=== PATIENT | female | born 1940 | race Caucasian/White ===

== ENCOUNTER 2018-04-18 13:19 | Inpatient (IN) ==
[2018-04-18] MEDS ORDERED: Naloxone 0.4 MG/ML INJ IVP PRN (17:08)
[2018-04-18] MEDS ORDERED: *HR* Heparin 5,000 UNIT/ML VIAL IVP PRN ×2 (17:20)
[2018-04-18] MEDS ORDERED: *HR* Heparin 5,000 UNIT/ML VIAL IVP ONE (17:20)
[2018-04-18] MEDS ORDERED: Heparin 25,000 UNIT/500 ML D5W 25,000 UNIT/500 ML BAG IVC SCH (17:30)
--- NOTE | 2018-04-18 17:31 | Internal Med History&Physical ---
Date of Encounter: 04/18/18 Time of Encounter: 17:25 Internal Medicine - H&P: HPI Chief complaint: Dyspnea on exertion, cough Admitted From: Home Plans for Post Hospital Care: Home History of present illness: Ms. Pop is a 77 year old female with history of CAD status post stent , hypertension, COPD on as needed oxygen, diabetes mellitus, hyperlipidemia was transferred from [facility] for further evaluation of NST UT. Patient has dyspnea on exertion for last few days and seen by PCP who is started antibiotic but not sure the name thinking underlying bronchitis versus pneumonia but patient never got better but worse therefore she ended up to [facility]. Initial lab with positive troponin 0.1, slight raised BNP 211, normal white count, EKG with no acute ST changes, chest x-ray with no acute finding. In ER Lovenox treatment dose 1, Rocephin and Zithromax was given and transferred to [facility]. Patient denies fever, chills, vomiting, headache, dizziness, chest pain, urinary or bowel complaint. Patient has chronic abdominal pain for a few years after cholecystectomy but no acute concern. Patient complained of fatigue and generalized weakness and white is productive a sputum that has been chronic. She supposed to take home oxygen as needed but she barely required as mostly time SPO2 runs higher 90s. Past Med Surg Social Fam HX - Past Medical History Medical history: asthma, COPD, coronary artery disease, hyperlipidemia, hypertension, osteoporosis Psychiatric history: anxiety, depression - Past Surgical History Surgical History: angioplasty/stent, appendectomy, cholecystectomy, hip replacement, hysterectomy, orthopedic, other - Social History Smoking Status: Current every day smoker Smokeless Tobacco Status: No Alcohol use: none Drug use: none - Family History Father Living Status: Hx Family Cardiac Disorders: Yes Mother Living Status: Hx Family Endocrine Disorder: Yes Internal Medicine - H&P: Meds Carvedilol [Coreg] 6.25 mg PO BIDWM 07/27/15 [History] Lisinopril [Zestril] 20 mg PO HS 07/27/15 [History] Ondansetron ODT [Zofran ODT] 4 mg SL Q6HR PRN 07/27/15 [History] Hydrochlorothiazide 12.5 mg PO DAILY 03/22/16 [History] Cyclobenzaprine [Flexeril] 10 mg PO TID PRN #60 tablet 03/27/16 [Rx] OxyCODONE Immed Rel [Roxicodone 15 MG] 15 mg PO Q8HR PRN #90 tablet 03/27/16 [Rx ] Morphine Sulfate SR (12 HR) [MS Contin] 60 mg PO Q8HR PRN 06/13/17 [History] diazePAM [Valium] 5 mg PO BID PRN 06/13/17 [History] 3 Allergy/AdvReac Type Severity Reaction Status Date / Time butorphanol [From Stadol] Allergy Rash Verified 04/18/18 11:21 All Systems PM: as documented above in the HPI. - Constitutional Vitals: Temp Pulse Resp BP Pulse Ox 97.8 F 66 19 130/77 93 04/18/18 15:24 04/18/18 15:24 04/18/18 15:24 04/18/18 15:24 04/18/18 15:24 Exam: General appearance: No acute distress, A&O X 3 Head exam: Atraumatic Eye exam: EOMI, PERRLA ENT exam: Moist oral mucosa Neck nontender, supple Respiratory exam: Decreased breath sound bilaterally Cardiovascular exam: Regular rate and rhythm, no systolic murmur Abdominal exam: Soft, nondistended, positive bowel sounds Extremities exam: No calf tenderness, trace pedal edema present and also skin changes due to chronic venous stasis Skin- warm, dry, intact Neurological exam: Alert, awake, oriented 3, CN II-XII intact, no focal deficits. No facial droop. Normal speech. Normal gait. - Assessment and plan (1) NSTEMI (non-ST elevated myocardial infarction) Current Visit: Yes Status: Acute Assessment and plan: Multiple cardiac risk factor. CAD status post distant. Positive troponin with no acute EKG change. Keep patient in a stepdown ICU, Serial troponin monitoring , aspirin, heparin drip, beta poncho, statin, nitroglycerin, oxygen started patient need ischemic cardiac workup echocardiogram ordered and also consulted lpn or medical assistant. Discussed the plan with on-call lpn or medical assistant. (2) Short of breath on exertion Current Visit: Yes Status: Acute Assessment and plan: Dyspnea on exertion. Differential COPD exacerbation, pneumonia, rule out PE. D -dimer ordered and if positive then will order CT angiogram to rule out PE and consider pulmonary weight-based heparin. Therapeutic 1 dose of Lovenox was given in the [place] ER. Will treat with Rocephin, Zithromax for possible community-acquired pneumonia based on clinical symptoms such as productive cough and shortness of breath. Also possibility of underlying COPD exacerbation therefore Solu-Medrol, DuoNeb, oxygen when necessary added. If any concern will order CT chest. (3) Hypertension Current Visit: Yes Status: Chronic Assessment and plan: Continue home medicine. Home medication is still in verification process. Close monitoring Qualifiers: Hypertension type: essential hypertension Qualified Code(s): I10 - Essential (primary) hypertension (4) DVT prophylaxis Current Visit: Yes Status: Acute Assessment and plan: Heparin drip - Time Spent With Patient Total time spent is greater than 50% in coordination of care (as documented) at patient's floor/unit and/or counseling patient: 25 - 35 minutes
[2018-04-18] MEDS ORDERED: Ipratropium/Albuterol Neb 3 ML IH PRN (17:34)
[2018-04-18 17:44] LABS: Hematocrit 35.8 % (35.3-44.9); Hemoglobin 11.8 g/dL (11.5-15.4); Mean Corpuscular Hemoglobin 28.3 pg (28.0-33.3); Mean Corpuscular Volume 85.9 fL (83.0-100.0); Mean Platelet Volume 9.2 fL (9.4-12.4); Platelet Count 235 K/mcL (140-400); Red Blood Count 4.17 M/mcL (3.82-4.97); Red Cell Distribution Width 15.3 % (11.5-14.5)
[2018-04-18 17:49] LABS: Prothrombin Time 10.8 Seconds (9.4-12.1)
[2018-04-18 17:52] LABS: Activated Partial Thrombo Time 35.4 Seconds (26.0-36.0)
[2018-04-18] MEDS: Nitroglycerin 0.4 MG TAB.SUBL SL PRN ×3 (19:48→20:03)
[2018-04-18] MEDS ORDERED: *HR* Morphine 2 MG/ML SYRINGE IVP ONE (20:06)
[2018-04-18] MEDS: MethylPREDNISolone 40 MG/ML VIAL IVP SCH (23:53)
[2018-04-19] MEDS ORDERED: *HR* FentaNYL (PF) 100 MCG/2 ML VIAL IVP ONE (00:50)
[2018-04-19 03:06] LABS: Chol/HDL Ratio 3.3 (0-4.9)
[2018-04-19] MEDS ORDERED: *HR* LORazepam 2 MG/ML VIAL IVP ONE (03:51)
[2018-04-19] MEDS: cefTRIAXone 1,000 MG in 0.9 % Sodium Chloride Mini Bag 100 ML IVP SCH (08:00)
[2018-04-19] MEDS: Azithromycin 500 MG in D5% in Water 250 ML IVPB SCH (08:01)
[2018-04-19] MEDS: MethylPREDNISolone 40 MG/ML VIAL IVP SCH ×3 (08:02→23:37)
[2018-04-19] MEDS: Aspirin 81 MG TAB.CHEW PO SCH (08:02)
[2018-04-19] MEDS ORDERED: Isovue-370 500 ML INFUS..BTL IV ONE (08:11)
[2018-04-19] MEDS: *HR* OxyCODONE Immed Rel 15 MG TABLET PO PRN (08:24)
[2018-04-19 09:07] LABS: Hematocrit 40.5 % (35.3-44.9); Hemoglobin 13.1 g/dL (11.5-15.4); Immature Granulocytes % 0.5 % (0-4); Lymphocytes # 0.8 K/mcL (0.6-4.6); Lymphocytes % 20.2 %; Mean Corpuscular HGB Conc 32.3 g/dL (31.6-35.5); Mean Corpuscular Hemoglobin 27.8 pg (28.0-33.3); Mean Corpuscular Volume 85.8 fL (83.0-100.0); Mean Platelet Volume 9.7 fL (9.4-12.4); Monocytes # 0.1 K/mcL (0.0-1.3); Monocytes % 2.8 %; Platelet Count 253 K/mcL (140-400); Red Blood Count 4.72 M/mcL (3.82-4.97); Red Cell Distribution Width 15.4 % (11.5-14.5); Segmented Neutrophils % 76.5 %
[2018-04-19] MEDS: Nicotine 21 MG PATCH.TD24 TD SCH (09:27)
[2018-04-19] MEDS: Ondansetron 4 MG/2 ML VIAL IVP PRN ×2 (09:27→15:46)
[2018-04-19 09:28] LABS: BUN/Creatinine Ratio 26 (6-26); Blood Urea Nitrogen 15 mg/dL (8-23); Calcium 8.6 mg/dL (8.6-10.3); Carbon Dioxide 27 mEq/L (23-29); Chloride 100 mEq/L (98-107); Glucose 151 mg/dL (70-105); Osmolality,Calculated 282 (280-300); Potassium 3.9 mEq/L (3.5-5.1); Sodium 134 mEq/L (136-145); eGFR For African Americans > 60 (> 60); eGFR For Non-African Americans > 60 (> 60)
[2018-04-19] MEDS: diazePAM 5 MG TABLET PO PRN (09:28)
--- NOTE | 2018-04-19 09:31 | Cardiology Consult Note ---
Date of Encounter: 04/19/18 Time of Encounter: 08:30 Assessment and Plan (1) Elevated troponin I level Current Visit: Yes Status: Acute Troponin 0.10, 0.07, 0.06 in the setting of COPD exacerbation. Do not suspect ACS at this time. Atypical chest pain symptoms--worsens with cough/deep breaths. No acute ST/T wave abnormalities noted on ECG. Continue medical therapy with asa, statin, and BB. CT chest ordered per primary service. Echo pending. (2) COPD (chronic obstructive pulmonary disease) Current Visit: Yes Status: Chronic Mgmt per primary service. CT angio chest ordered. Qualifiers: COPD type: emphysema Emphysema type: unspecified Qualified Code(s): J43.9 - Emphysema, unspecified (3) CAD (coronary artery disease) Current Visit: No Status: Acute Hx of CAD s/p PCI in 2012 to RCA. Plan as above, continue asa, statin, and BB. Qualifiers: Coronary Disease-Associated Artery/Lesion type: [place] artery [place] vs. transplanted heart: [place] heart Associated angina: without angina Qualified Code(s): I25.10 - Atherosclerotic heart disease of [place] coronary artery without angina pectoris Discussion w patient/family: The assessment and plan as outlined above was discussed with the patient and/or family members who expressed understanding and agreement. All questions were answered. Thank you for involving us in the care of your patient. Please call with any questions. The patient will be discussed and reviewed with Dr. Valerio, changes to be made accordingly. History of Present Illness Consult date: 04/19/18 Requesting physician: Dasia Pak Consult reason: Elevated troponin Chief complaint: Shortness of breath History of present illness: Ms. Pop is a 77 year old female with PMHx significant for COPD (oxygen dependent), HTN, HLD, tobacco use, and CAD s/p PCI (RCA in 2011) who presented to [place] ED with complaints of 1 week history of worsening shortness of breath. Associated symptoms include frequent, nonproductive cough. Also reports chest discomfort that worsens with cough and deep breathing. Troponin was 0.1, patient was then transferred to [facility] for further evaluation. No acute ST/T wave abnormalities noted. Prior CV testing: TTE 02/07/15: Normal LV systolic function, LVEF 60-65%.Mild left ventricular diastolic dysfunction.Normal right ventricular structure and function.Mildly dilated right atrium.Mild aortic regurgitation.Mild mitral regurgitation.Mild- moderate tricuspid regurgitation.Mild-moderate pulmonary hypertension. Estimated RVSP = 48 mmHg.All wall segments showed normal motion. Past Med Surg Social Fam HX - Past Medical History Attestation: Yes The following information was validated with the patient. Source: patient Medical history: asthma, COPD, coronary artery disease, hyperlipidemia, hypertension, osteoporosis Psychiatric history: anxiety, depression - Past Surgical History Surgical History: angioplasty/stent, appendectomy, cholecystectomy, hip replacement, hysterectomy, orthopedic, other - Social History Smoking Status: Current every day smoker Smokeless Tobacco Status: No Alcohol use: none Drug use: none - Family History Father Living Status: Hx Family Cardiac Disorders: Yes Mother Living Status: Hx Family Endocrine Disorder: Yes Medications and Allergies Lisinopril [Zestril] 20 mg PO HS 07/27/15 [History] Morphine Sulfate SR (12 HR) [MS Contin] 60 mg PO Q8HR PRN 06/13/17 [History] diazePAM [Valium] 5 mg PO BID PRN 06/13/17 [History] 3 Allergy/AdvReac Type Severity Reaction Status Date / Time butorphanol [From Stadol] Allergy Rash Verified 04/18/18 11:21 All Systems Review: The remainder of the systems were reviewed and are negative - Cardiovascular Cardiovascular: as per HPI Physical Examination Vital Signs, Last 4 Hours Temp Pulse Resp BP Pulse Ox 04/19/18 08:14 93 04/19/18 07:06 97.5 F L 59 20 157/88 94 General: Conversant, Other (thin, frail, conversational dyspnea) HEENT: Atraumatic, Normocephaly Cardiac: Reg Rate and Rhythm, Normal S1 and S2 Lungs: Other (Coarse, decreased) Neuro: Alert and responsive Abdomen: Soft Extremities: No Edema, Normal Pulses Results 04/19/18 08:55 04/19/18 08:55 Lab Results 04/18/18 04/18/18 04/18/18 17:31 17:31 17:31 WBC 4.3 Hgb 11.8 Hct 35.8 Plt Count 235 INR 1.0 APTT 35.4 D-Dimer 1244 H Troponin I 0.07 H* 04/18/18 04/19/18 04/19/18 23:21 02:19 08:55 WBC Hgb Hct Plt Count INR APTT 63.6 H D 51.3 H D-Dimer Troponin I 0.06 H* 04/19/18 08:55 WBC 4.0 L Hgb 13.1 Hct 40.5 Plt Count 253 INR APTT D-Dimer Troponin I - Imaging and Cardiology Echo: pending, report reviewed Other Results: 12 hour tele: avg HR=68 SR. No events noted. - EKG Interpretation EKG results cardiology: personally reviewed Consult Discharge Plan - Plan Referrals: Teresa Strange, GROUP SOCIAL WORKER [Primary Care Provider] -
--- NOTE | 2018-04-19 14:55 | Internal Med Progress Note ---
Date of Encounter: 04/19/18 Time of Encounter: 08:50 - Assessment and plan (1) NSTEMI (non-ST elevated myocardial infarction) Current Visit: Yes Status: Ruled-out Assessment and plan: Mild troponin leak of 0.1, now trending down. Likely related to demand ischemia and hypoxemia from acute COPD. Cardiology recommendations noted. Continue aspirin, statin, MANSI inhibitor. Echocardiogram shows reduced ejection fraction around 40%, mild LV diastolic dysfunction. Start low-dose IV Lasix, urine output monitoring. Continue telemetry. (2) Hypertension Current Visit: Yes Status: Chronic Qualifiers: Hypertension type: essential hypertension Qualified Code(s): I10 - Essential (primary) hypertension (3) DVT prophylaxis Current Visit: Yes Status: Acute (4) Diabetes mellitus Current Visit: Yes Status: Chronic Assessment and plan: Blood sugars noted to be well controlled. Continue Accu-Chek blood glucose monitoring with sliding scale insulin as needed. Diabetic diet. Qualifiers: Diabetes mellitus type: type 2 Diabetes mellitus salvage determiner insulin use: without chcf use Diabetes mellitus complication status: with unspecified complications Qualified Code(s): E11.8 - Type 2 diabetes mellitus with unspecified complications (5) Chronic pain Current Visit: Yes Status: Chronic Assessment and plan: Patient is noted to be on multiple narcotic pain medications at home both extended and immediate release. Resume home medications. Qualifiers: Chronic pain type: other chronic pain Qualified Code(s): G89.29 - Other chronic pain (6) Acute exacerbation of chronic obstructive airways disease Current Visit: Yes Status: Acute Assessment and plan: Active smoker of at least one pack per day. Continue IV steroids, taper down as tolerated. Follow-up blood cultures, continue empiric IV antibiotics, breathing treatments, supplemental oxygen. D-dimer noted to be elevated. Check CT angiogram of chest, will discontinue IV heparin drip if negative. (7) CAD (coronary artery disease) Current Visit: Yes Status: Chronic Qualifiers: Coronary Disease-Associated Artery/Lesion type: [place] artery [place] vs. transplanted heart: [place] heart Associated angina: without angina Qualified Code(s): I25.10 - Atherosclerotic heart disease of [place] coronary artery without angina pectoris (8) Anxiety and depression Current Visit: Yes Status: Chronic Assessment and plan: Resume home medication - Time Spent With Patient Total time spent is greater than 50% in coordination of care (as documented) at patient's floor/unit and/or counseling patient: - Subjective Interval history: Reports nausea and feeling sick; reports left-sided chest pain, difficulty breathing, hacking cough and wheezing; smokes at least 1 pack of cigarettes per day; lives alone; - Constitutional Vitals: Temp Pulse Resp BP Pulse Ox 97.6 F 64 22 143/86 98 04/19/18 11:28 04/19/18 11:28 04/19/18 11:28 04/19/18 11:28 04/19/18 11:28 General appearance: Present: cachectic, mild distress, A&O X 3, answers questions appropriately - Respiratory Respiratory exam: Present: CTAB (coarse breath sounds B/L), wheezes. Absent: accessory muscle use, rales, rhonchi - Cardiovascular Cardiovascular exam: Present: RRR, +S1, +S2. Absent: diastolic murmur, gallop, rubs, systolic murmur - GI/Abdominal GI/Abdominal exam: Present: normal bowel sounds, soft, no peritoneal signs. Absent: distended, tenderness - Extremities Exam Extremities exam: Present: full ROM, warm, radial pulses palpable and symmetrical. Absent: calf tenderness, cyanotic, pedal edema - Neurological Exam Neurological exam: Present: CN II-XII intact, oriented X3, no focal deficits. Absent: pronater drift, facial droop, speech deficit - Skin Skin exam: Present: dry, intact Internal Medicine: Result - Labs CBC & Chem 7: 04/19/18 08:55 04/19/18 08:55 Labs: Short CBC 04/18/18 04/19/18 Range/Units 17:31 08:55 WBC 4.3 4.0 L (4.3-11.1) K/mcL Hgb 11.8 13.1 (11.5-15.4) g/dL Hct 35.8 40.5 (35.3-44.9) % Plt Count 235 253 (140-400) K/mcL Neutrophils # 3.0 (1.6-8.9) K/mcL BMP 04/19/18 08:55 Sodium 134 L Potassium 3.9 Chloride 100 Carbon Dioxide 27 BUN 15 Creatinine 0.58 L Glucose 151 H Calcium 8.6 Cardiac Enzymes 04/18/18 04/18/18 Range/Units 17:31 23:21 Troponin I 0.07 H* 0.06 H* (< 0.04) ng/mL - ABG Interpretation ABG results: PT/INR, D-dimer PT 10.8 Seconds (9.4-12.1) 04/18/18 17:31 D-Dimer 1244 ng/mLFEU (0-500) H 04/18/18 17:31 - Impressions Impressions Echocardiogram 04/19/18 11:00 Impressions: LVEF 40%. Normal LV chamber size and wall thickness. Global left ventricular systolic dysfunction. Mild left ventricular diastolic dysfunction. Normal right ventricular structure and function. Mild aortic regurgitation. Mild mitral regurgitation. Mild pulmonary hypertension. Mild tricuspid regurgitation. Left Ventricular Wall Motion: Rest Echo Findings The apex, apical inferior, mid inferior, basal inferior, apical anterior, mid anterior, basal anterior, apical septal, mid inferior septal, basal inferior septal, apical lateral, mid anterior lateral, basal anterior lateral, mid anterior septal, mid inferior lateral, basal anterior septal and basal inferior lateral [place] were hypokinetic. Findings: Study Quality * Technically adequate exam. ECG Findings * Normal sinus rhythm. Left Ventricle * LVEF 40%. * Normal LV chamber size and wall thickness. * Global left ventricular systolic dysfunction. * Mild left ventricular diastolic dysfunction. Right Ventricle * Normal right ventricular structure and function. Left Atrium * Mildly dilated left atrium. Right Atrium * Normal right atrial size. Aortic Valve * Trileaflet aortic valve. * Mildly calcified aortic valve leaflets. * Mild aortic regurgitation. * No aortic stenosis. Mitral Valve * Normal mitral valve structure. * No mitral stenosis. * Mild mitral regurgitation. Tricuspid Valve * Normal tricuspid valve structure. * Mild tricuspid regurgitation. * Mild pulmonary hypertension. Pulmonic Valve * Normal pulmonic valve structure and function. * Trace pulmonic regurgitation. Aorta * Normally sized aortic root. Pericardium * Trivial pericardial effusion. IVC * The IVC is dilated. * < 50% respiratory change. Pulmonary Artery * Normal visualized portions of the main pulmonary artery. Consult Discharge Plan - Plan Referrals: Teresa Strange, DEX [Primary Care Provider] -
[2018-04-19] MEDS: *HR* Morphine Sulfate SR (12 HR) 60 MG TABLET.ER PO SCH ×2 (14:59→23:37)
[2018-04-19] MEDS: Furosemide 20 MG/2 ML VIAL IVP SCH (15:46)
[2018-04-19] MEDS ORDERED: Lisinopril 20 MG TABLET PO SCH (21:00)
[2018-04-19] MEDS: Mirtazapine 15 MG TABLET PO SCH (21:11)
[2018-04-19] MEDS: *HR* Heparin 5,000 UNIT/ML VIAL SQ SCH (23:37)
[2018-04-20] MEDS: *HR* OxyCODONE Immed Rel 15 MG TABLET PO PRN (03:08)
[2018-04-20] MEDS: *HR* Heparin 5,000 UNIT/ML VIAL SQ SCH ×3 (05:10→20:12)
[2018-04-20 05:30] LABS: Hematocrit 42.7 % (35.3-44.9); Hemoglobin 14.3 g/dL (11.5-15.4); Immature Granulocytes % 0.4 % (0-4); Lymphocytes # 0.8 K/mcL (0.6-4.6); Lymphocytes % 11.3 %; Mean Corpuscular HGB Conc 33.5 g/dL (31.6-35.5); Mean Corpuscular Volume 86.6 fL (83.0-100.0); Mean Platelet Volume 9.8 fL (9.4-12.4); Monocytes # 0.3 K/mcL (0.0-1.3); Monocytes % 3.8 %; Neutrophils # 5.8 K/mcL (1.6-8.9); Nucleated Red Blood Cells 0.3 /100 WBC (0); Platelet Count 275 K/mcL (140-400); Red Blood Count 4.93 M/mcL (3.82-4.97); Red Cell Distribution Width 15.6 % (11.5-14.5); Segmented Neutrophils % 84.5 %
[2018-04-20 05:55] LABS: BUN/Creatinine Ratio 23 (6-26); Blood Urea Nitrogen 17 mg/dL (8-23); Calcium 8.9 mg/dL (8.6-10.3); Carbon Dioxide 30 mEq/L (23-29); Chloride 95 mEq/L (98-107); Glucose 147 mg/dL (70-105); Osmolality,Calculated 282 (280-300); Potassium 4.3 mEq/L (3.5-5.1); Sodium 134 mEq/L (136-145); eGFR For African Americans > 60 (> 60); eGFR For Non-African Americans > 60 (> 60)
[2018-04-20] MEDS: diazePAM 5 MG TABLET PO PRN (06:56)
[2018-04-20] MEDS: Azithromycin 500 MG in D5% in Water 250 ML IVPB SCH (08:23)
[2018-04-20] MEDS: MethylPREDNISolone 40 MG/ML VIAL IVP SCH ×3 (08:24→20:12)
[2018-04-20] MEDS: cefTRIAXone 1,000 MG in 0.9 % Sodium Chloride Mini Bag 100 ML IVP SCH (08:24)
[2018-04-20] MEDS: Furosemide 20 MG/2 ML VIAL IVP SCH ×2 (08:24→17:26)
[2018-04-20] MEDS: *HR* Morphine Sulfate SR (12 HR) 60 MG TABLET.ER PO SCH ×3 (08:26→23:24)
[2018-04-20] MEDS: Aspirin 81 MG TAB.CHEW PO SCH (08:26)
[2018-04-20] MEDS: BuPROPion XL (24 HR) 150 MG TABLET PO SCH (08:26)
[2018-04-20] MEDS: Nicotine 21 MG PATCH.TD24 TD SCH (08:27)
--- NOTE | 2018-04-20 10:10 | Cardiology Progress Note ---
Date of Encounter: 04/20/18 Time of Encounter: 10:00 Assessment and Plan (1) Elevated troponin I level Current Visit: Yes Status: Acute Troponin 0.10, 0.07, 0.06 in the setting of COPD exacerbation. Do not suspect ACS at this time. Atypical chest pain symptoms--worsens with cough/deep breaths. No acute ST/T wave abnormalities noted on ECG. Continue medical therapy with asa, statin, and BB. CT chest ordered per primary service. EF 40% with global LV systolic dysfunction. Continue medical therapy for now. Recommend ischemic evaluation in the outpatient. (2) COPD (chronic obstructive pulmonary disease) Current Visit: Yes Status: Chronic Mgmt per primary service. CT angio chest ordered. Qualifiers: COPD type: emphysema Emphysema type: unspecified Qualified Code(s): J43.9 - Emphysema, unspecified (3) Cardiomyopathy Current Visit: Yes Status: Acute Mild reduction in LVEF, 40% with global LV systolic dysfunction. Prior reports shows normal LVEF, 60%. Patient presented with acute COPD exacerbation. Still remains short of breath upon exam, however improved. Medical therapy has been recommended. Will change betablocker to Toprol-XL. Continue ACEi. Appears euvolemic upon exam, will transition lasix to po. Can consider ischemic evaluation in the outpatient setting with continued symptoms. Qualifiers: Cardiomyopathy type: unspecified Qualified Code(s): I42.9 - Cardiomyopathy , unspecified (4) CAD (coronary artery disease) Current Visit: Yes Status: Chronic Hx of CAD s/p PCI in 2011 to RCA. Plan as above, continue asa, statin, and BB. Qualifiers: Coronary Disease-Associated Artery/Lesion type: [place] artery [place] vs. transplanted heart: [place] heart Associated angina: without angina Qualified Code(s): I25.10 - Atherosclerotic heart disease of [place] coronary artery without angina pectoris Discussion w patient/family: The assessment and plan as outlined above was discussed with the patient and/or family members who expressed understanding and agreement. All questions were answered. Thank you for involving us in the care of your patient. Please call with any questions. The patient will be discussed and reviewed with Dr. Friend, changes to be made accordingly. Subjective Principal diagnosis: Elevated troponin Interval history: Seen and examined. Shortness of breath significantly improved this morning upon exam. No chest pain reported. No leg edema reported. Objective Vital Signs, Last 4 Hours Temp Pulse Resp BP Pulse Ox 05/21/18 06:52 98.1 F 69 18 151/86 93 General: Conversant, No Apparent Distress, Other (thin, frail) HEENT: Atraumatic, Normocephaly, Mucus Membranes Moist Cardiac: Reg Rate and Rhythm, Normal S1 and S2 Lungs: Other (Significant wheezing noted throughout) Neuro: Alert and responsive Abdomen: Soft Skin: No rashes noted on visualized skin Musculoskeletal: No Chest Wall Tenderness Extremities: No Edema, Normal Pulses Results 04/20/18 05:06 04/20/18 05:06 Lab Results 04/19/18 04/20/18 04/20/18 16:22 05:06 05:06 WBC 6.8 D Hgb 14.3 Hct 42.7 Plt Count 275 APTT 54.6 H Sodium 134 L Potassium 4.3 Chloride 95 L Carbon Dioxide 30 H BUN 17 Creatinine 0.73 Glucose 147 H Calcium 8.9 Active Medications Albuterol/Ipratropium (Duoneb) 3 ml IH [id number] PRN PRN Reason: Shortness Of Breath/Wheezing Stop: 10/18/18 17:35 Aspirin (Aspirin) 81 mg PO DAILY NUNU Stop: 10/19/18 09:01 Last Admin: 04/20/18 08:26 Dose: 81 mg Atorvastatin Calcium (Lipitor) 40 mg PO HS NUNU Stop: 10/18/18 21:01 Last Admin: 04/19/18 21:11 Dose: 40 mg Bupropion HCl (Wellbutrin Xl) 150 mg PO DAILY NUNU Stop: 10/20/18 09:01 Last Admin: 04/20/18 08:26 Dose: 150 mg Cyclobenzaprine HCl (Flexeril) 10 mg PO TID PRN PRN Reason: Spasms Stop: 10/19/18 08:15 Last Admin: 04/19/18 13:17 Dose: 10 mg Diazepam (Valium) 5 mg PO BID PRN PRN Reason: Anxiety Stop: 10/19/18 08:15 Last Admin: 04/20/18 06:56 Dose: 5 mg Furosemide (Lasix) 20 mg IVP BIDDIURETIC NUNU Stop: 10/19/18 17:01 Last Admin: 04/20/18 08:24 Dose: 20 mg Heparin Sodium (Porcine) (Heparin Lock) 500 unit IV ONCE PRN PRN Reason: [place] while in RADIOLOGY Stop: 04/21/18 08:11 Heparin Sodium (Porcine) (Heparin) 5,000 unit SQ Q8HCO [facility] Stop: 10/20/18 00:01 Last Admin: 04/20/18 05:10 Dose: 5,000 unit Azithromycin 500 mg/ Dextrose 250 mls @ 252 mls/hr IVPB Q24H [facility] Stop: 10/19/18 09:01 Last Admin: 04/20/18 08:23 Dose: 252 mls/hr Ceftriaxone Sodium 1,000 mg/ (Sodium Chloride) 100 mls @ 200 mls/hr IVP DAILY [facility] Stop: 10/19/18 09:01 Last Admin: 04/20/18 08:24 Dose: 200 mls/hr Lisinopril (Zestril) 20 mg PO HS [facility] PRN Reason: Protocol Stop: 10/19/18 21:01 Last Admin: 04/19/18 21:11 Dose: 20 mg Methylprednisolone (Solu-Medrol) 40 mg IVP Q12H [facility] Stop: 10/20/18 09:46 Metoprolol Tartrate (Lopressor) 25 mg PO Q8HR [facility] Stop: 10/19/18 00:01 Last Admin: 04/20/18 08:26 Dose: 25 mg Mirtazapine (Remeron) 45 mg PO HS [facility] Stop: 10/19/18 21:01 Last Admin: 04/19/18 21:11 Dose: 45 mg Morphine Sulfate (Ms Contin) 60 mg PO Q8HR [facility] Stop: 10/19/18 16:01 Last Admin: 04/20/18 08:26 Dose: 60 mg Naloxone HCl (Narcan) 0.4 mg IVP Q2MIN PRN PRN Reason: SEE COMMENTS Stop: 10/18/18 17:09 Nicotine (Nicoderm) 21 mg TD DAILY [facility] PRN Reason: Protocol Stop: 10/19/18 09:16 Last Admin: 04/20/18 08:27 Dose: 21 mg Nitroglycerin (Nitroglycerin) 0.4 mg SL Q5MIN PRN PRN Reason: Chest Pain Stop: 10/18/18 17:38 Last Admin: 04/18/18 20:03 Dose: 0.4 mg Ondansetron HCl (Zofran) 4 mg IVP Q6HR PRN; Protocol PRN Reason: Nausea And Vomiting Stop: 10/19/18 09:14 Last Admin: 04/19/18 15:46 Dose: 4 mg Oxycodone HCl (Roxicodone) 15 mg PO Q8HR PRN; Protocol PRN Reason: pain Stop: 10/19/18 08:15 Last Admin: 04/20/18 03:08 Dose: 15 mg - Imaging and Cardiology Echo: report reviewed Cardiac cath: report reviewed Other Results: 12 hour tele: avg HR=61 SR. - EKG Interpretation EKG results cardiology: personally reviewed Consult Discharge Plan - Plan Referrals: Teresa Strange, DEX [Primary Care Provider] - 04/29/18 4:00 pm Triston Maxwell DO [Partnered Physician] - (office will call patient at home with follow up)
[2018-04-20 13:36] LABS: Adenovirus Not Detected (Not Detect); Bordetella Pertussis Not Detected (Not Detect); Chlamydophila pneumoniae Not Detected (Not Detect); Coronavirus 229E Not Detected (Not Detect); Coronavirus HKU1 Not Detected (Not Detect); Coronavirus NL63 Not Detected (Not Detect); Coronavirus OC43 Not Detected (Not Detect); Human Metapneumovirus Not Detected (Not Detect); Human Rhinovirus/Enterovirus Not Detected (Not Detect); Influenza A Subtype 2009 H1 Not Detected (Not Detect); Influenza A Untypeable Not Detected (Not Detect); Influenza B Not Detected (Not Detect); Mycoplasma pneumoniae Not Detected (Not Detect); Parainfluenza Virus 1 Not Detected (Not Detect); Parainfluenza Virus 2 Not Detected (Not Detect); Parainfluenza Virus 3 Not Detected (Not Detect); Parainfluenza Virus 4 Not Detected (Not Detect); Respiratory Syncytial Virus Not Detected (Not Detect)
--- NOTE | 2018-04-20 14:32 | Electrocardiograph Report ---
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
--- NOTE | 2018-04-20 16:49 | Internal Med Progress Note ---
Date of Encounter: 04/20/18 Time of Encounter: 09:45 - Assessment and plan (1) NSTEMI (non-ST elevated myocardial infarction) Current Visit: Yes Status: Ruled-out Assessment and plan: Mild troponin leak of 0.1, now trending down. Likely related to demand ischemia and hypoxemia from acute COPD. Cardiology recommendations noted, recommend outpatient ischemic evaluation due to reduced EF. Continue aspirin, statin, MANSI inhibitor. Echocardiogram shows reduced ejection fraction around 40 %, mild LV diastolic dysfunction. Change Lasix to PO, urine output monitoring. Continue telemetry. PT/OT evaluation; (2) Hypertension Current Visit: Yes Status: Chronic Assessment and plan: Started Lasix; ACEI and beta poncho are being resumed; monitor BP closely; Qualifiers: Hypertension type: essential hypertension Qualified Code(s): I10 - Essential (primary) hypertension (3) DVT prophylaxis Current Visit: Yes Status: Acute Assessment and plan: Heparin s.c (4) Diabetes mellitus Current Visit: Yes Status: Chronic Assessment and plan: Blood sugars noted to be well controlled. Continue Accu-Chek blood glucose monitoring with sliding scale insulin as needed. Diabetic diet. Qualifiers: Diabetes mellitus type: type 2 Diabetes mellitus ferry terminal agent insulin use: without jail use Diabetes mellitus complication status: with unspecified complications Qualified Code(s): E11.8 - Type 2 diabetes mellitus with unspecified complications (5) Chronic pain Current Visit: Yes Status: Chronic Assessment and plan: Patient is noted to be on multiple narcotic pain medications at home both extended and immediate release. Resume home medications. CTA chest shows multiple compression deformities in thoracic and upper lumbar vertebral bodies, new compression fractures in T3 and T8; outpatient Spine surgery f/up; Qualifiers: Chronic pain type: other chronic pain Qualified Code(s): G89.29 - Other chronic pain (6) Acute exacerbation of chronic obstructive airways disease Current Visit: Yes Status: Acute Assessment and plan: Active smoker of at least one pack per day. Continue IV steroids, taper down as tolerated. Follow-up blood cultures, continue empiric IV antibiotics, breathing treatments, supplemental oxygen. D-dimer noted to be elevated. CT angiogram of chest shows no e/o acute PE, off IV heparin drip. Home O2 evaluation and 6-min walk test prior to discharge; (7) CAD (coronary artery disease) Current Visit: Yes Status: Chronic Qualifiers: Coronary Disease-Associated Artery/Lesion type: [place] artery [place] vs. transplanted heart: [place] heart Associated angina: without angina Qualified Code(s): I25.10 - Atherosclerotic heart disease of [place] coronary artery without angina pectoris (8) Anxiety and depression Current Visit: Yes Status: Chronic Assessment and plan: Resume home medications; - Time Spent With Patient Total time spent is greater than 50% in coordination of care (as documented) at patient's floor/unit and/or counseling patient: - Subjective Interval history: Appears significantly better from yesterday; denies chest pain, palpitations; improved shortness of breath and respiratory distress; reports extreme anxiety "nerves" and chronic pains. Nicotine patch is working, claims she has easy access to cigarettes at home and unable to quit; - Constitutional Vitals: Temp Pulse Resp BP Pulse Ox 97.3 F L 56 18 136/98 93 04/20/18 16:11 04/20/18 16:11 04/20/18 16:11 04/20/18 16:11 04/20/18 16:11 General appearance: Present: cachectic, A&O X 3, answers questions appropriately - Respiratory Respiratory exam: Present: CTAB (coarse breath sounds B/L), wheezes (B/L posterior expiratory wheezing). Absent: accessory muscle use, rales, rhonchi - Cardiovascular Cardiovascular exam: Present: RRR, +S1, +S2. Absent: diastolic murmur, gallop, rubs, systolic murmur - GI/Abdominal GI/Abdominal exam: Present: normal bowel sounds, soft, no peritoneal signs. Absent: distended, tenderness - Extremities Exam Extremities exam: Present: full ROM, warm, radial pulses palpable and symmetrical. Absent: calf tenderness, cyanotic, pedal edema - Neurological Exam Neurological exam: Present: CN II-XII intact, oriented X3, no focal deficits. Absent: pronater drift, facial droop, speech deficit Internal Medicine: Result - Labs CBC & Chem 7: 04/20/18 05:06 04/20/18 05:06 Labs: Short CBC 04/20/18 Range/Units 05:06 WBC 6.8 D (4.3-11.1) K/mcL Hgb 14.3 (11.5-15.4) g/dL Hct 42.7 (35.3-44.9) % Plt Count 275 (140-400) K/mcL Neutrophils # 5.8 (1.6-8.9) K/mcL BMP 04/20/18 05:06 Sodium 134 L Potassium 4.3 Chloride 95 L Carbon Dioxide 30 H BUN 17 Creatinine 0.73 Glucose 147 H Calcium 8.9 - ABG Interpretation ABG results: PT/INR, D-dimer PT 10.8 Seconds (9.4-12.1) 04/18/18 17:31 D-Dimer 1244 ng/mLFEU (0-500) H 04/18/18 17:31 - Impressions Impressions Chest CTA 04/19/18 11:00 IMPRESSION: No CT evidence of pulmonary embolism. Small bilateral pleural effusions with lower lobe consolidation, greater on the left, atelectasis and/or pneumonia. Multiple compression deformities of thoracic and upper lumbar vertebral bodies. Since prior study October 2016, T3 compression fracture is new and a T8 compression fracture is increased. Correlation is recommended. MRI may be helpful if indicated. D/ / Dorothy Winn Cha, MD / Dorothy Winn Cha, MD Interpreting Provider: Dorothy Winn Cha, MD Consult Discharge Plan - Plan Referrals: Teresa Strange CNP [Primary Care Provider] - 04/29/18 4:00 pm Triston Maxwell DO [Partnered Physician] - (office will call patient at home with follow up)
[2018-04-20] MEDS: Mirtazapine 15 MG TABLET PO SCH (20:11)
[2018-04-20] MEDS: Lisinopril 20 MG TABLET PO SCH (20:12)
[2018-04-21] MEDS: diazePAM 5 MG TABLET PO PRN (00:28)
[2018-04-21] MEDS ORDERED: Haloperidol Lactate 5 MG/ML VIAL IVP ONE (03:43)
[2018-04-21] MEDS: *HR* Heparin 5,000 UNIT/ML VIAL SQ SCH ×3 (05:54→20:36)
[2018-04-21] MEDS: Metoprolol XL (24 HR) Succ 25 MG TAB.ER.24H PO SCH (07:50)
[2018-04-21] MEDS: Furosemide 20 MG TABLET PO SCH ×2 (07:50→17:10)
[2018-04-21] MEDS: *HR* Morphine Sulfate SR (12 HR) 60 MG TABLET.ER PO SCH ×2 (07:50→17:10)
[2018-04-21] MEDS: BuPROPion XL (24 HR) 150 MG TABLET PO SCH (07:50)
[2018-04-21] MEDS: Azithromycin 500 MG in D5% in Water 250 ML IVPB SCH (07:50)
[2018-04-21] MEDS: Aspirin 81 MG TAB.CHEW PO SCH (07:50)
[2018-04-21] MEDS: cefTRIAXone 1,000 MG in 0.9 % Sodium Chloride Mini Bag 100 ML IVP SCH (07:50)
[2018-04-21] MEDS: Nicotine 21 MG PATCH.TD24 TD SCH (07:51)
[2018-04-21] MEDS: MethylPREDNISolone 40 MG/ML VIAL IVP SCH (10:39)
[2018-04-21 20:35] LABS: ABG Base Excess 4 mEq/L (-2 to 3); ABG HCO3 30 mEq/L (21-27); ABG Oxygen Saturation 86 % (95-98); ABG PCO2 49 mmHg (35-45); ABG PH 7.39 pH Units (7.32-7.45); ABG PO2 53 mmHg (85-104); ABG TCO2 31 mEq/L (20-26)
[2018-04-21] MEDS: Mirtazapine 15 MG TABLET PO SCH (20:36)
[2018-04-21] MEDS: Lisinopril 20 MG TABLET PO SCH (20:37)
--- NOTE | 2018-04-21 21:34 | Internal Med Progress Note ---
Date of Encounter: 04/21/18 Time of Encounter: 18:00 - Assessment and plan (1) Acute exacerbation of chronic obstructive airways disease Current Visit: Yes Status: Acute Assessment and plan: The patient has had dyspnea, coughing and wheezing recently. It has been associated with some anterior chest discomfort. She does not use oxygen at home. After starting her on IV Solu-Medrol, she has developed confusion. We will try to avoid oral steroids. We will use nebulizer treatments. She will use if needed oxygen. The patient is started on IV Rocephin and IV Zithromax. (2) Acute on chronic respiratory failure with hypoxia and hypercapnia Current Visit: Yes Status: Acute Assessment and plan: The patient required oxygen at that admission. Her ABG from today's shows mild hypercapnia and mild hypoxia. We will treat her exacerbation of COPD, as mentioned above. (3) Encephalopathy acute Current Visit: Yes Status: Acute Assessment and plan: Cardiac intensive follow-up of pain is likely due to high-dose steroids. We stopped IV Solu-Medrol. We will use inhaled bronchodilators with or without inhaled steroids. I stopped her when necessary oxycodone. I decreased her dose of MS Contin. (4) Chronic systolic heart failure Current Visit: Yes Status: Chronic Assessment and plan: She seems to have chronic mild systolic heart failure. See notes from cardiology. Her last ejection fraction was 40%. (5) Demand ischemia Current Visit: Yes Status: Acute Assessment and plan: See notes from cardiology. Her demand ischemia is likely due to COPD exacerbation. See my notes about treatment of that problem. She may need more testing for her heart, in outpatient settings. - Time Spent With Patient Total time spent is greater than 50% in coordination of care (as documented) at patient's floor/unit and/or counseling patient: - Subjective Interval history: The patient is very confused. It started shortly after giving her IV Solu- Medrol. She tells me that she feels fine. Denies chest pain. Denies difficulty breathing. She is using her oxygen mask. - Constitutional Vitals: Temp Pulse Resp BP Pulse Ox 97 F L 75 16 143/84 86 04/21/18 20:08 04/21/18 20:08 04/21/18 20:08 04/21/18 20:08 04/21/18 20:08 General appearance: Present: cachectic, A&O X 3, no acute distress - Respiratory Respiratory exam: Present: CTAB. Absent: rales, rhonchi, wheezes - Cardiovascular Cardiovascular exam: Present: RRR. Absent: diastolic murmur, gallop, systolic murmur - GI/Abdominal GI/Abdominal exam: Present: normal bowel sounds, soft, no peritoneal signs. Absent: distended, tenderness - Skin Skin exam: Present: dry, intact Internal Medicine: Result - Labs CBC & Chem 7: 04/20/18 05:06 04/20/18 05:06 - ABG Interpretation ABG results: ABG ABG pH 7.39 pH Units (7.32-7.45) 04/21/18 20:32 ABG pCO2 49 mmHg (35-45) H 04/21/18 20:32 ABG pO2 53 mmHg (85-104) L 04/21/18 20:32 ABG O2 Saturation 86 % (95-98) L 04/21/18 20:32 PT/INR, D-dimer PT 10.8 Seconds (9.4-12.1) 04/18/18 17:31 D-Dimer 1244 ng/mLFEU (0-500) H 04/18/18 17:31 - VTE Deep Vein Thrombosis/Pulmonary Embolism Present on Admission: No Consult Discharge Plan - Plan Referrals: Teresa Strange CNP [Primary Care Provider] - 04/29/18 4:00 pm Triston Maxwell DO [Partnered Physician] - (office will call patient at home with follow up)
[2018-04-22] MEDS ORDERED: *HR* Labetalol 20 MG/4 ML SYRINGE IVP ONE (02:11)
[2018-04-22] MEDS: Ipratropium/Albuterol Neb 3 ML IH SCH ×6 (03:50→23:42)
[2018-04-22] MEDS: *HR* Heparin 5,000 UNIT/ML VIAL SQ SCH ×3 (05:51→20:28)
[2018-04-22] MEDS: *HR* Morphine Sulfate SR (12 HR) 60 MG TABLET.ER PO SCH ×2 (05:52→18:06)
[2018-04-22] MEDS: Nicotine 21 MG PATCH.TD24 TD SCH (07:58)
[2018-04-22] MEDS: Metoprolol XL (24 HR) Succ 25 MG TAB.ER.24H PO SCH (07:58)
[2018-04-22] MEDS: Furosemide 20 MG TABLET PO SCH ×2 (07:58→18:06)
[2018-04-22] MEDS: Azithromycin 250 MG TABLET PO SCH (07:58)
[2018-04-22] MEDS: cefTRIAXone 1,000 MG in 0.9 % Sodium Chloride Mini Bag 100 ML IVP SCH (07:58)
[2018-04-22] MEDS: Aspirin 81 MG TAB.CHEW PO SCH (07:58)
[2018-04-22] MEDS: BuPROPion XL (24 HR) 150 MG TABLET PO SCH (07:58)
[2018-04-22] MEDS ORDERED: *HR* OxyCODONE Immed Rel 5 MG TABLET PO PRN (15:27)
[2018-04-22] MEDS: Lisinopril 20 MG TABLET PO SCH (20:27)
[2018-04-22] MEDS: Mirtazapine 15 MG TABLET PO SCH (20:28)
--- NOTE | 2018-04-22 23:55 | Internal Med Progress Note ---
Date of Encounter: 04/22/18 Time of Encounter: 17:00 - Assessment and plan (1) Acute exacerbation of chronic obstructive airways disease Status: Acute Assessment and plan: Better. Her breathing he is not labored anymore. She has less wheezing. Will continue supplemental oxygen and ipratropium/albuterol nebulizer treatments. She started on Zithromax. (2) Encephalopathy acute Status: Acute Assessment and plan: Subsided. We decreased her dose of morphine sulfate. We stopped her IV Solu- Medrol. (3) Chronic systolic heart failure Status: Chronic Assessment and plan: Mild. Will keep her on the lisinopril and extended-release metoprolol. (4) Demand ischemia Status: Acute Assessment and plan: This is secondary to I observed that admission hypoxia. See notes from cardiology. (5) Acute and chronic respiratory failure with hypoxia Status: Acute Assessment and plan: Her acute respiratory failure subsided. She continues to have chronic respiratory failure with hypoxia. She said her baseline 3 L per minute nasal cannula oxygen. - Time Spent With Patient Total time spent is greater than 50% in coordination of care (as documented) at patient's floor/unit and/or counseling patient: - Subjective Interval history: Her confusion subsided. Her breathing is not labored anymore. She does have a little bit of wheezing at times. Denies chest pain. Denies heptaminol pain, nausea and vomiting. She has normal urination. - Constitutional Vitals: Temp Pulse Resp BP Pulse Ox 97.8 F 72 16 139/87 96 04/22/18 22:55 04/22/18 22:55 04/22/18 22:55 04/22/18 22:55 04/22/18 20:37 General appearance: Present: cachectic, A&O X 3, no acute distress - Respiratory Respiratory exam: Present: CTAB, wheezes. Absent: accessory muscle use, rales, rhonchi Additional comments: She has a few bilateral wheezes. - Cardiovascular Cardiovascular exam: Present: RRR, +S1, +S2. Absent: diastolic murmur, gallop, rubs, systolic murmur - GI/Abdominal GI/Abdominal exam: Present: normal bowel sounds, soft, no peritoneal signs. Absent: distended, tenderness - Skin Skin exam: Present: dry, intact Internal Medicine: Result - Labs CBC & Chem 7: 04/20/18 05:06 05/21/18 05:06 - ABG Interpretation ABG results: ABG ABG pH 7.39 pH Units (7.32-7.45) 04/21/18 20:32 ABG pCO2 49 mmHg (35-45) H 04/21/18 20:32 ABG pO2 53 mmHg (85-104) L 04/21/18 20:32 ABG O2 Saturation 86 % (95-98) L 04/21/18 20:32 PT/INR, D-dimer PT 10.8 Seconds (9.4-12.1) 04/18/18 17:31 D-Dimer 1244 ng/mLFEU (0-500) H 04/18/18 17:31 - VTE Deep Vein Thrombosis/Pulmonary Embolism Present on Admission: No Consult Discharge Plan - Plan Additional Instructions: The patient is to use oxygen at 2 L/m nasal cannula continuously. We will keep her pulse ox between 90 AND 95%. Some assistance is needed with ambulation. Referrals: Teresa Strange CNP [Primary Care Provider] - (Patient is going to [facility] no PCP appointment needed) Triston Maxwell DO [Partnered Physician] - (office will call patient at home with follow up) Prescriptions: OxyCODONE Immed Rel [Roxicodone 5 MG] 5 mg PO Q6HR PRN 5 Days #10 tablet PRN Reason: Breakthrough Pain Morphine Sulfate SR (12 HR) [MS Contin] 60 mg PO Q12HR 5 Days #10 tablet.er diazePAM [Valium] 5 mg PO BID PRN 5 Days #10 tablet PRN Reason: Anxiety
[2018-04-23] MEDS: Ipratropium/Albuterol Neb 3 ML IH SCH ×3 (03:56→11:12)
[2018-04-23] MEDS: *HR* Morphine Sulfate SR (12 HR) 60 MG TABLET.ER PO SCH (06:23)
[2018-04-23] MEDS: *HR* Heparin 5,000 UNIT/ML VIAL SQ SCH (06:23)
[2018-04-23] MEDS: Aspirin 81 MG TAB.CHEW PO SCH (08:37)
[2018-04-23] MEDS: Nicotine 21 MG PATCH.TD24 TD SCH (08:38)
[2018-04-23] MEDS: cefTRIAXone 1,000 MG in 0.9 % Sodium Chloride Mini Bag 100 ML IVP SCH (08:38)
[2018-04-23] MEDS: BuPROPion XL (24 HR) 150 MG TABLET PO SCH (08:38)
[2018-04-23] MEDS: Azithromycin 250 MG TABLET PO SCH (08:38)
[2018-04-23] MEDS: Furosemide 20 MG TABLET PO SCH (08:38)
[2018-04-23] MEDS: Metoprolol XL (24 HR) Succ 25 MG TAB.ER.24H PO SCH (08:40)
--- NOTE | 2018-04-23 11:01 | Discharge Summary ---
- NOTES TO OUTPATIENT PROVIDER Notes to Outpatient Provider: The patient was admitted with exacerbation of COPD. She got confused after giving her IV Solu-Medrol. It subsided. Her breathing seems to be baseline. She uses supplemental oxygen at 2 L/m nasal cannula oxygen. Date of Encounter: 04/23/18 Time of Encounter: 10:30 - Discharge Diagnosis (1) Acute exacerbation of chronic obstructive airways disease Priority: Primary Status: Acute (2) Encephalopathy acute Priority: Secondary Status: Acute Comments: Secondary to use of IV steroids. Subsided. (3) Chronic systolic heart failure Priority: Secondary Status: Chronic Comments: Heart ejection fraction is 40%. (4) Demand ischemia Priority: Primary Status: Acute Comments: She was evaluated by cardiology. She may need outpatient workup, when symptomatic. (5) Acute and chronic respiratory failure with hypoxia Priority: Primary Status: Acute (6) Chronic pain syndrome Priority: Secondary Status: Acute Assessment and Plan: She doesn't complain of pain. I decreased dose of extended-release morphine sulfate by one third. We may need to discontinue this gradually. Hospital course: Ms. Pop is a 77 year old female. The patient was admitted with exacerbation of COPD. She got confused after giving her IV Solu-Medrol. I decreased her dose of extended-release morphine sulfate. Confusion subsided. Her breathing seems to be baseline. She uses supplemental oxygen at 3 L/m nasal cannula oxygen.We found her to have mildly elevated troponin. Cardiology was consulted. They feel, that she experienced demand ischemia secondary to severe hypoxia.She has mild/moderate systolic heart failure. Will keep her on lisinopril and extended-release metoprolol. We are sending her to a fpc facility. Discharge discussed with: patient, family, nurse, case management - Time Spent with Patient Total time spent providing and/or coordinating discharge services: Greater than 30 minutes - Discharge Medications Prescriptions: OxyCODONE Immed Rel [Roxicodone 5 MG] 5 mg PO Q6HR PRN 5 Days #10 tablet PRN Reason: Breakthrough Pain Morphine Sulfate SR (12 HR) [MS Contin] 60 mg PO Q12HR 5 Days #10 tablet.er diazePAM [Valium] 5 mg PO BID PRN 5 Days #10 tablet PRN Reason: Anxiety Home Medications: Lisinopril [Zestril] 20 mg PO HS 07/27/15 [History] Morphine Sulfate SR (12 HR) [MS Contin] 60 mg PO Q8HR PRN 06/13/17 [History] Albuterol Sulfate [Ventolin Hfa] 2 puff IH Q6H PRN 04/19/18 [History] BuPROPion XL (24 HR) [Wellbutrin Xl] 150 mg PO DAILY 04/19/18 [History] Fluticasone/Vilanterol [Breo Ellipta 100-25 Mcg INH] 1 puff IH DAILY 04/19/18 [ History] Hydrochlorothiazide [Microzide] 12.5 mg PO DAILY 04/19/18 [History] Mirtazapine [Remeron] 45 mg PO HS 04/19/18 [History] Aspirin 81 mg PO DAILY #0 tab.chew 04/23/18 [Rx] Atorvastatin [Lipitor] 40 mg PO HS tablet 04/23/18 [Rx] Azithromycin [Zithromax] 500 mg PO DAILY 5 Days tablet 04/23/18 [Rx] Ipratropium/Albuterol Neb [Duoneb] 3 ml IH Q4HR PRN inhsol 04/23/18 [Rx] Ipratropium/Albuterol Neb [Duoneb] 3 ml IH QID inhsol 04/23/18 [Rx] Metoprolol XL (24 HR) Succ [Toprol Xl] 25 mg PO DAILY tab.er.24h 04/23/18 [Rx] Morphine Sulfate SR (12 HR) [MS Contin] 60 mg PO Q12HR 5 Days #10 tablet.er [Rx] Nicotine Patch [Nicoderm] 21 mg TD DAILY patch.td24 04/23/18 [Rx] Nitroglycerin 0.4 mg SL Q5MIN PRN tab.subl 04/23/18 [Rx] OxyCODONE Immed Rel [Roxicodone 5 MG] 5 mg PO Q6HR PRN 5 Days #10 tablet [Rx] diazePAM [Valium] 5 mg PO BID PRN 5 Days #10 tablet 04/23/18 [Rx] Allergies/Adverse Reactions: 3 Allergy/AdvReac Type Severity Reaction Status Date / Time butorphanol [From Stadol] Allergy Rash Verified 04/18/18 11:21 Date of admission: 04/19/18 18:33 Primary care physician: Teresa Strange CNP Consults: 04/18/18 17:08 Consult to Cardiology [CONS] Routine Comment: Consulting Provider: Jennie Nevarez Reason for Consult: NST MT Call Completed: Yes 04/19/18 09:22 Consult to Occupational Therapy [CONS] Routine Comment: Evaluate, develop and implement POC Reason for Consult: HH Does patient have active BEDREST order?: Yes Is patient medically & hemodynamically stable?: Yes Patient assessed for mobility or mobilized this visit?: No Consult to Physical Therapy [CONS] Routine Comment: Evaluate, develop and implement POC Reason for Consult: Generalized weakness Does patient have active BEDREST order?: No Is patient medically & hemodynamically stable?: Yes Patient assessed for mobility or mobilized this visit?: No Consult to Chief Relay Tester [CONS] Routine Reason for SW Consult: possible HH Discharging clinician: Richard Tim Anticipated date of discharge: 04/23/18 - Constitutional Vitals: Temp Pulse Resp BP Pulse Ox 97.7 F 74 22 123/82 94 04/23/18 07:36 04/23/18 08:44 04/23/18 08:44 04/23/18 07:36 04/23/18 07:36 General appearance: Present: cachectic, A&O X 3, no acute distress - Respiratory Respiratory exam: Present: CTAB. Absent: rales, rhonchi, wheezes - Patient Status Disposition: Transfer SNF - Discharge Instructions Follow Up With: Teresa Strange CNP [Primary Care Provider] - (Patient is going to [facility] no PCP appointment needed) Triston Maxwell DO [Partnered Physician] - (office will call patient at home with follow up) Additional Instructions: The patient is to use oxygen at 2 L/m nasal cannula continuously. We will keep her pulse ox between 90 AND 95%. Some assistance is needed with ambulation. - VTE Deep Vein Thrombosis/Pulmonary Embolism Present on Admission: No
[2018-04-23 11:05] VITALS: BP 129/94
--- NOTE | 2018-04-23 11:50 | Physician Discharge Referral ---
ExtendedCare Referral Info Transfer To: [facility] Provider in Charge: Tracee ARMANDO MD Provider in Charge after Transfer: Other (A SNF PHYSICIAN) - Diagnosis (1) Acute exacerbation of chronic obstructive airways disease Status: Acute (2) Acute on chronic respiratory failure with hypoxia and hypercapnia Status: Acute (3) Encephalopathy acute Status: Acute (4) Chronic systolic heart failure Status: Chronic (5) Demand ischemia Status: Acute - Transfer Medications Prescriptions: OxyCODONE Immed Rel [Roxicodone 5 MG] 5 mg PO Q6HR PRN 5 Days #10 tablet PRN Reason: Breakthrough Pain Morphine Sulfate SR (12 HR) [MS Contin] 60 mg PO Q12HR 5 Days #10 tablet.er diazePAM [Valium] 5 mg PO BID PRN 5 Days #10 tablet PRN Reason: Anxiety Home Medications: Lisinopril [Zestril] 20 mg PO HS 07/27/15 [History] Morphine Sulfate SR (12 HR) [MS Contin] 60 mg PO Q8HR PRN 06/13/17 [History] Albuterol Sulfate [Ventolin Hfa] 2 puff IH Q6H PRN 04/19/18 [History] BuPROPion XL (24 HR) [Wellbutrin Xl] 150 mg PO DAILY 04/19/18 [History] Fluticasone/Vilanterol [Breo Ellipta 100-25 Mcg INH] 1 puff IH DAILY 04/19/18 [ History] Hydrochlorothiazide [Microzide] 12.5 mg PO DAILY 04/19/18 [History] Mirtazapine [Remeron] 45 mg PO HS 04/19/18 [History] Aspirin 81 mg PO DAILY #0 tab.chew 04/23/18 [Rx] Atorvastatin [Lipitor] 40 mg PO HS tablet 04/23/18 [Rx] Azithromycin [Zithromax] 500 mg PO DAILY 5 Days tablet 04/23/18 [Rx] Ipratropium/Albuterol Neb [Duoneb] 3 ml IH Q4HR PRN inhsol 04/23/18 [Rx] Ipratropium/Albuterol Neb [Duoneb] 3 ml IH QID inhsol 04/23/18 [Rx] Metoprolol XL (24 HR) Succ [Toprol Xl] 25 mg PO DAILY tab.er.24h 04/23/18 [Rx] Morphine Sulfate SR (12 HR) [MS Contin] 60 mg PO Q12HR 5 Days #10 tablet.er [Rx] Nicotine Patch [Nicoderm] 21 mg TD DAILY patch.td24 04/23/18 [Rx] Nitroglycerin 0.4 mg SL Q5MIN PRN tab.subl 04/23/18 [Rx] OxyCODONE Immed Rel [Roxicodone 5 MG] 5 mg PO Q6HR PRN 5 Days #10 tablet [Rx] diazePAM [Valium] 5 mg PO BID PRN 5 Days #10 tablet 04/23/18 [Rx] Allergies/Adverse Reactions: 3 Allergy/AdvReac Type Severity Reaction Status Date / Time butorphanol [From Stadol] Allergy Rash Verified 04/18/18 11:21 - Respiratory Orders Oxygen / L per min Smoking Cessation: Smoking cessation has been advised. For more information, call the [place] Tobacco Quit Line at 9-223-XUZX-NOW. CERTIFICATION: I certify that the transfer of the above named patient to an Extended Care Facility is necessary for the continuing treatment of the diagnosis listed. The above information is true and accurate reflection of patient's current condition. Confidential - Redisclosure prohibited without a patient's written consent.
== END 2018-04-23 13:19 | DRG 190 ==
LOC: 3NENU → SUATTDRO 15:03 → 2NNU 21:53 → SUATTDRO 04-19 18:33
PROVIDERS: ADMIT Internal Medicine; ATTEND Internal Medicine